=== PATIENT | female | born 1970 | race Caucasian/White ===

== ENCOUNTER 2019-07-08 11:04 | Outpatient (CLI) | payer OTHER ==
--- NOTE | 2019-07-08 13:43 | Mammography Report ---
Reason: ABNORMAL MAMMOGRAM Procedure Date: 07/08/2019 Accession Number: [id number] / [id number] Procedure: KIARA - Diag Special Views Dig LT CPT Code: Final Report FULL RESULT: EXAM: Diag Special Views Dig LT, Breast Unilateral Limited DATE: 07/08/2019 11:36 AM CLINICAL HISTORY: Follow-up abnormal mammogram 06/14/2019. COMPARISON: 06/14/2019, 08/09/2014 MAMMOGRAM: TECHNIQUE: (L) - Left. CC and MLO spot compression and true lateral views were obtained. PARENCHYMAL PATTERN: (A) - The breasts demonstrate scattered fibroglandular densities bilaterally. FINDINGS: Density seen in the left breast 6:00 position persists on additional views. LEFT BREAST ULTRASOUND: TECHNIQUE: Real time scanning by the sandblast operator with saved static images reviewed. FINDINGS: Corresponding to the mammographic finding in the 6:00 position left breast 2 cm from the nipple is a 5 x 3 x 6 mm ovoid avascular well-circumscribed anechoic cyst. IMPRESSION: Benign findings. BI-RADS category 2. Left breast. RECOMMENDATION: (ANNUAL) - Recommend routine annual screening mammography. BI-RADS CATEGORY: (2) - Benign Findings. STANDARD QUALIFYING STATEMENTS: 1. This examination was not reviewed with the aid of Computer-Aided Detection (CAD). 2. A negative or benign imaging report should not preclude biopsy if clinically suspicious findings are present. 3. Dense breasts may obscure an underlying neoplasm. 4. This examination was reviewed with the aid of 3D breast imaging (tomosynthesis).
== END 2019-07-08 11:05 | disposition home or self-care (01) ==
LOC: DI 11:04
PROVIDERS: ATTEND Family Medicine
DX: N60.02 Solitary cyst of left breast (principal)
CPT/HCPCS: 76642

== ENCOUNTER 2021-11-13 15:34 | Outpatient (CLI) | payer OTHER ==
--- NOTE | 2021-11-14 09:52 | Mammography Report ---
BILATERAL DIGITAL SCREENING MAMMOGRAM 3D/2D: 11/13/2021 CLINICAL: Routine screening. Comparison is made to exams dated: 07/08/2019 mammogram, 06/14/2019 mammogram, and 08/09/2014 mammogram - [facility]. There are scattered fibroglandular elements in both breasts. No significant masses, calcifications, or other findings are seen in either breast. There has been no significant interval change. IMPRESSION: NEGATIVE There is no mammographic evidence of malignancy. A 1 year screening mammogram is recommended. Based on the Tyrer Cuzick model (a risk assessment model) the patients lifetime risk is 6.5% and her 10 year risk is 1.7%. According to the ACR, ACS, and NCCN guidelines, an annual breast MRI exam ni g with mammogram is recommended if the patients lifetime risk is 20% or greater. This exam was interpreted at Station ID: [id number]. NOTE: For mammograms, a report in lay terms will be sent to the patient. Approximately 15% of breast malignancies will not be visualized mammographically. In the management of a palpable breast mass, a negative mammogram must not discourage biopsy of a clinically suspicious lesion. Electronically Signed By: Nayan [email or web address]:11/14/2021 08:18:13 ACR BI-RADS Category 1: Negative 3341F PARENCHYMAL PATTERN: (A) - The breast(s) demonstrate(s) scattered fibroglandular densities. BI-RADS CATEGORY: (1) - 1 RECOMMENDATION: (ANNUAL) - Recommend routine annual screening mammography. [id number] 1 year screening LATERALITY: (B)
== END 2021-11-13 15:35 | disposition home or self-care (01) ==
LOC: DI.N 15:34
PROVIDERS: ATTEND Family Medicine
DX: Z12.31 Encounter for screening mammogram for malignant neoplasm of breast (principal)